=== PATIENT | female | born 1970 | race American Indian/Alaskan Native ===

== ENCOUNTER 2022-04-24 14:49 | Emergency (ER) | payer MEDICARE ==
[2022-04-24] MEDS ORDERED: FAMOTIDINE 20 MG TAB PO ONE (15:24)
[2022-04-24] MEDS ORDERED: predniSONE 20 MG TAB PO ONE (15:24)
[2022-04-24] MEDS ORDERED: diphenhydrAMINE 25 MG/10 ML ORAL LIQUID PO ONE (15:24)
--- NOTE | 2022-04-24 15:25 | Emergency Department Report ---
ED Allergic Reaction HPI - General Stated complaint: ALLEGIC REACTION Time Seen by Provider: 04/24/22 15:24 Source: patient Mode of arrival: Ambulatory Limitations: No Limitations - History of Present Illness Initial Comments: 51 yo comes to ER with sensation of sob p eating onions. She is allergic to onions. While eating out she accidently ate some. 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 abc intact vss normal VS no rash/hives/urticaria Ambulatory and in nad on arrival to ER MD Complaint: allergic reaction - Related Data Previous Rx's Medication Instructions Recorded Last Taken Type Cetirizine HCl [ZyrTEC] 10 mg PO DAILY #30 capsule 04/24/22 Unknown Rx diphenhydrAMINE [Benadryl CAP] 25 mg PO Q8HR PRN #20 capsule 04/24/22 Unknown Rx predniSONE [Deltasone] 20 mg PO DAILY #5 tablet 04/24/22 Unknown Rx Allergies Allergy/AdvReac Type Severity Reaction Status Date / Time onion Allergy Hives Verified 04/24/22 15:29 ED Review of Systems ROS: Stated complaint: ALLEGIC REACTION Other details as noted in HPI Comment: All other systems reviewed and negative ED Past Medical Hx - Past Medical History Previous Medical History?: No - Surgical History Past Surgical History?: No - Family History Family history: no significant - Social History Smoking Status: Never Smoker Substance Use Type: None - Medications Home Medications: Home Medications Medication Instructions Recorded Confirmed Last Taken Type Cetirizine HCl [ZyrTEC] 10 mg PO DAILY #30 capsule 04/24/22 Unknown Rx diphenhydrAMINE [Benadryl CAP] 25 mg PO Q8HR PRN #20 capsule 04/24/22 Unknown Rx predniSONE [Deltasone] 20 mg PO DAILY #5 tablet 04/24/22 Unknown Rx ED Physical Exam - General Limitations: No Limitations General appearance: alert, in no apparent distress - Head Head exam: Present: atraumatic, normocephalic - Eye Eye exam: Present: normal appearance - ENT ENT exam: Present: mucous membranes moist - Neck Neck exam: Present: normal inspection - Respiratory Respiratory exam: Present: normal lung sounds bilaterally. Absent: respiratory distress - Cardiovascular Cardiovascular Exam: Present: regular rate, normal rhythm. Absent: systolic murmur, diastolic murmur, rubs, gallop - GI/Abdominal GI/Abdominal exam: Present: soft, normal bowel sounds - Extremities Exam Extremities exam: Present: normal inspection - Back Exam Back exam: Present: normal inspection - Neurological Exam Neurological exam: Present: alert, oriented X3 - Psychiatric Psychiatric exam: Present: normal affect, normal mood - Skin Skin exam: Present: warm, dry, intact, normal color. Absent: rash ED Course Vital Signs 04/24/22 15:23 Temperature 98.9 F Pulse Rate 101 H Respiratory 14 Rate Blood Pressure 133/85 [Right] O2 Sat by Pulse 96 Oximetry ED Medical Decision Making - Medical Decision Making Vital Signs 04/24/22 15:23 Temperature 98.9 F Pulse Rate 101 H Respiratory 14 Rate Blood Pressure 133/85 [Right] O2 Sat by Pulse 96 Oximetry medicated with benadryl, prednisone and pepcid in ER. on follow up she had no complaints and VS remain normal dc home with dc plan of care including diet, meds, activity and follow up. Pt verbalizes understanding of plan of care - Differential Diagnosis allegic response Critical care attestation.: If time is entered above; I have spent that time in minutes in the direct care of this critically ill patient, excluding procedure time. ED Disposition Clinical Impression: Allergic reaction Qualifiers: Encounter type: initial encounter Qualified Code(s): T78.40XA - Allergy, unspecified, initial encounter Disposition: 01 HOME / SELF CARE / HOMELESS Is pt being admited?: No Does the pt Need Aspirin: No Condition: Stable Instructions: Allergies, Adult, [id number] Prescriptions: diphenhydrAMINE [Benadryl CAP] 25 mg PO Q8HR PRN #20 capsule PRN Reason: Itching predniSONE [Deltasone] 20 mg PO DAILY #5 tablet Cetirizine HCl [ZyrTEC] 10 mg PO DAILY #30 capsule Referrals: ANÍBAL GILL MD [Primary Care Provider] - 3-5 Days Forms: Work/School Release Form(ED)
[2022-04-24 15:27] VITALS: BP 133/85
== END 2022-04-24 18:00 | disposition home or self-care (01) ==
LOC: ED 14:49
DX: T78.1XXA Other adverse food reactions, not elsewhere classified, initial encounter (principal); X58.XXXA Exposure to other specified factors, initial encounter
CPT/HCPCS: 99282; Q0163